=== PATIENT | female | born 1990 | race Asian ===

== ENCOUNTER 2016-12-19 13:31 | Emergency (ER) | payer OTHER ==
[~2016-12-19] VITALS: Ht 200.7 cm; Wt 127.0 kg
[2016-12-19 13:35] VITALS: BP 173/80; TEMP 98
== END 2016-12-19 15:55 | disposition home or self-care (01) ==
LOC: ED 13:31
DX: O23.41 Unspecified infection of urinary tract in pregnancy, first trimester (principal); R19.7 Diarrhea, unspecified
CPT/HCPCS: 36415; 81000; 81025; 87086; 87088; 99283

== ENCOUNTER 2017-05-08 22:59 | Emergency (ER) | payer OTHER ==
[~2017-05-08] VITALS: Ht 170.2 cm; Wt 127.0 kg
[2017-05-08 23:42] VITALS: BP 149/81; TEMP 98.3
== END 2017-05-09 00:03 | disposition home or self-care (01) ==
LOC: ED 22:59
DX: L03.112 Cellulitis of left axilla (principal)
CPT/HCPCS: 96372; 99282; J0696

== ENCOUNTER 2017-05-12 20:08 | Emergency (ER) | payer OTHER ==
[~2017-05-12] VITALS: Ht 170.2 cm; Wt 124.3 kg
[2017-05-12] MEDS ORDERED: TRAM50TA PO (20:29)
[2017-05-12 21:10] LABS: PLATELET COUNT 323 K/uL (152-353)
[2017-05-12 22:00] VITALS: BP 138/82; TEMP 98.9
== END 2017-05-12 22:05 | disposition home or self-care (01) ==
LOC: ED 20:08
PROVIDERS: Specialist
DX: L73.2 Hidradenitis suppurativa (principal)
CPT/HCPCS: 36415; 85027; 99283

== ENCOUNTER 2018-06-25 13:01 | Outpatient (CLI) | payer OTHER ==
[~2018-06-25 13:01] MED LIST: TRAM50TA PO
== END 2018-06-25 22:18 | disposition home or self-care (01) ==
LOC: MAMMO 13:01
DX: N64.4 Mastodynia (principal)

== ENCOUNTER 2019-02-18 10:53 | Outpatient (CLI) | payer OTHER | END 2019-02-18 23:18 | disposition home or self-care (01) | LOC: US 10:53 | DX: N60.01 Solitary cyst of right breast (principal) ==

== ENCOUNTER 2022-01-02 23:30 | Emergency (ER) | payer OTHER ==
[~2022-01-02] VITALS: Ht 170.2 cm; Wt 128.8 kg
[2022-01-02 23:38] VITALS: BP 173/99
[2022-01-03 01:52] VITALS: TEMP 99.1
== END 2022-01-03 01:52 | disposition home or self-care (01) ==
LOC: ED 23:30
DX: S80.11XA Contusion of right lower leg, initial encounter (principal); S50.12XA Contusion of left forearm, initial encounter; S00.01XA Abrasion of scalp, initial encounter; W10.8XXA Fall (on) (from) other stairs and steps, initial encounter; Y92.89 Other specified places as the place of occurrence of the external cause
CPT/HCPCS: 90471; 90715; 96372; 99283; J1885